=== PATIENT | male | born 1980 | race Caucasian/White ===

== ENCOUNTER 2018-06-17 17:09 | Emergency (ER) | payer OTHER ==
[~2018-06-17] VITALS: Ht 182.9 cm; Wt 95.0 kg
[2018-06-17] MEDS ORDERED: morphine 2 MG/ML inj. syringe IV ONE ×2 (17:50→18:40)
[2018-06-17] MEDS ORDERED: ondansetron/PF 4mg/2ml inj IV ONE (17:50)
[2018-06-17] MEDS ORDERED: HYDR-4383 PO (18:06)
[2018-06-17] MEDS ORDERED: LIDOcaine 1% 30ml preserv. free vial SQ STA (18:12)
[2018-06-17] MEDS ORDERED: CEPH-572 PO (19:05)
[2018-06-17 19:22] VITALS: BP 125/81
== END 2018-06-17 19:24 | disposition home or self-care (01) ==
LOC: ER 17:10
DX: S68.121A Partial traumatic metacarpophalangeal amputation of left index finger, initial encounter (principal); S61.211A Laceration without foreign body of left index finger without damage to nail, initial encounter; W27.8XXA Contact with other nonpowered hand tool, initial encounter; Y93.89 Activity, other specified; Y92.89 Other specified places as the place of occurrence of the external cause; Y99.9 Unspecified external cause status
CPT/HCPCS: 12001; 96374; 96375; 96376; 99283; J2270; J2405